=== PATIENT | female | born 1960 | race Caucasian/White ===

== ENCOUNTER 2019-05-11 12:10 | Day surgery (SDC) | payer MEDICARE ==
[2019-05-11] MEDS ORDERED: Depo-Medrol 40 MG/ML IM ONE (12:11)
[2019-05-11] MEDS ORDERED: Sodium Chloride 0.9(Preservative Free) 10 ML IJ ONE (12:11)
[2019-05-11] MEDS ORDERED: DIPRIVAN 200 MG/20 ML IV ONE (13:12)
[2019-05-11] MEDS ORDERED: Ketamine HCl 50 MG/ML ONE (13:12)
--- NOTE | 2019-05-11 14:52 | XRAY ---
20 seconds fluoroscopy time in surgery for L4-S1 transforaminal JENNA.
--- NOTE | 2019-05-11 14:52 | XRAY ---
Indication: Right L4-S1 JENNA. Intraoperative fluoroscopy was provided for 20 seconds. 2 digital spot images submitted for interpretation demonstrates posterior needle tips projecting over the expected course of the right L4 and L5 nerve roots. Small amount of contrast injected for needle tip placement. Correlate with intraoperative findings/report.
[2019-05-11] MEDS ORDERED: Lactated Ringers 1,000 ML IV ONE (15:18)
== END 2019-05-11 13:52 | disposition home or self-care (01) ==
LOC: SDC-PAIN 12:10
PROVIDERS: ATTEND Psychiatry & Neurology Pain Medicine
DX: M54.16 Radiculopathy, lumbar region (principal); M19.90 Unspecified osteoarthritis, unspecified site; L40.9 Psoriasis, unspecified; Z79.899 Other long term (current) drug therapy
CPT/HCPCS: 64483; 64484; 72020; 77003; J1030; J2704; Q9966

== ENCOUNTER 2021-04-03 12:07 | Day surgery (SDC) | payer MEDICARE ==
[2021-04-03] MEDS ORDERED: Sodium Chloride 0.9(Preservative Free) 10 ML IJ ONE (12:08)
[2021-04-03] MEDS ORDERED: Depo-Medrol 40 MG/ML IM ONE (12:08)
[2021-04-03] MEDS ORDERED: DIPRIVAN 200 MG/20 ML IV ONE (14:08)
--- NOTE | 2021-04-03 15:24 | XRAY ---
Indication: Right L4-S1 transforaminal JENNA. Intraoperative fluoroscopy was provided for 38 seconds. 3 digital spot image submitted for interpretation demonstrates posterior needle tips projecting over the expected right L4 and L5 nerve roots. Small amount of contrast injected for needle tip placement. Correlate with intraoperative findings/report. Incidental partially visualized L3 spinal fusion hardware.
--- NOTE | 2021-04-03 16:25 | XRAY ---
38 seconds of fluoroscopy was used in surgery for a right L4-S1 transforaminal JENNA.
[2021-04-03] MEDS ORDERED: Lactated Ringers 1,000 ML IV ONE (16:30)
== END 2021-04-03 14:40 | disposition home or self-care (01) ==
LOC: SDC-PAIN 12:07
PROVIDERS: ATTEND Psychiatry & Neurology Pain Medicine
DX: M54.16 Radiculopathy, lumbar region (principal); Z79.899 Other long term (current) drug therapy
CPT/HCPCS: 64483; 64484; 72100; 77003; J1030; J2704; Q9966

== ENCOUNTER 2022-07-01 18:04 | Emergency (ER) | payer MEDICARE ==
--- NOTE | 2022-07-01 18:19 | ERPHSYRPT ---
- History of Present Illness Time Seen by Provider: 07/01/22 18:19 Historian: patient Exam Limitations: no limitations Physician History: This is a 62-year-old white female patient of Dr. Saima Ramires who has had coughing for approximately 10 days. Today she noted pain in between her shoulder blades and also some pressure in her anterior central substernal chest. The pain between her shoulder blades were sharp. Patient does have a history of hypertension hyperlipidemia. She sees a pain specialist, Dr. Mohan. She also has a client support consultant Dr. Dio Cerda. Patient states she is not short of breath. Patient has not been exposed any individuals with similar symptoms or with the diagnosis of viral illness. Timing/Duration: week(s) (1.5) Quality: pressure (Anterior substernal chest), sharpness (In between her shoulder blades) Location: substernal, central, back Chest Pain Radiation: no radiation (I do not feel the this pain combination is radiation of chest pain. I do not think the pains are related) Severity of Pain-Max: mild Severity of Pain-Current: mild Modifying Factors: Improves With: nothing Associated Symptoms: cough, No nausea, No vomiting, No palpitations, No shortness of breath, No fever, No headache, No back pain Prior Chest Pain/Cardiac Workup: no prior chest pain Nitro Today/Relief: no nitro taken today Aspirin Treatment Today: no aspirin today Allergies/Adverse Reactions: No Known Drug Allergies Allergy (Unverified 07/01/22 18:06) Home Medications: Metoprolol Succinate 25 mg PO DAILY 07/01/22 [History] Rosuvastatin Calcium 5 mg PO DAILY 07/01/22 [History] Ustekinumab [Stelara] 1 syringe 07/01/22 [History] Travel Risk - International Travel Have you traveled outside of the country in past 3 weeks: No - Coronavirus Screening Are you exhibiting any of the following symptoms?: Yes Symptoms: Cough: New Onset, Headaches/Body Aches/Fatigue Close contact with a COVID-19 positive Pt in past 14-21 Days: No - Vaccine Status Have you recieved a Covid-19 vaccination: Yes - Review of Systems Constitutional: No Symptoms Eyes: No Symptoms Ears, Nose, & Throat: No Symptoms Respiratory: Cough Cardiac: Chest Pain (Chest pressure) Abdominal/Gastrointestinal: No Symptoms Genitourinary Symptoms: No Symptoms Musculoskeletal: Other (Sharp pain between her shoulder blades) Skin: No Symptoms Neurological: No Symptoms Psychological: No Symptoms Endocrine: No Symptoms Hematologic/Lymphatic: No Symptoms Immunological/Allergic: No Symptoms All Other Systems: Reviewed and Negative - Past Medical History Pertinent Past Medical History: Yes - Past Surgical History Past Surgical History: Yes - Nursing Vital Signs Nursing Vital Signs: Initial Vital Signs Temperature 97.8 F 07/01/22 18:05 Pulse Rate 71 07/01/22 18:05 Respiratory Rate 16 07/01/22 18:05 Blood Pressure 143/78 07/01/22 18:05 O2 Sat by Pulse Oximetry 98 07/01/22 18:05 Pain Scale Pain Intensity 5 - Physical Exam General Appearance: no apparent distress, alert, anxiety Eye Exam: PERRL/EOMI, eyes nml inspection Ears, Nose, Throat Exam: normal ENT inspection, moist mucous membranes Neck Exam: normal inspection, non-tender, supple, full range of motion Respiratory Exam: normal breath sounds, chest tenderness, lungs clear, airway intact, No respiratory distress Cardiovascular Exam: regular rate/rhythm, normal heart sounds, normal peripheral pulses Gastrointestinal/Abdomen Exam: soft, normal bowel sounds, No tenderness Pelvic Exam: not done Rectal Exam: not done Back Exam: normal inspection, normal range of motion, No CVA tenderness, No vertebral tenderness Extremity Exam: normal inspection, normal range of motion, pelvis stable Neurologic Exam: alert, oriented x 3, cooperative, table lever operator II-XII nml as tested, normal mood/affect, nml cerebellar function, nml station & gait, sensation nml Skin Exam: normal color, warm, dry Lymphatic Exam: No adenopathy SpO2 Interpretation: normal O2 Delivery: Room Air - Course Nursing assessment & vital signs reviewed: Yes Ordered Tests: Active Orders 24 hr Category Date Time Status EKG-ER Only STAT Care 07/01/22 18:30 Active IV Insertion STAT Care 07/01/22 18:30 Active Pulse Oximetry (ED) STAT Care 07/01/22 18:30 Active CHEST 1 VIEW (PORTABLE) Stat Exams 07/01/22 18:31 Taken CHEST WITH CONTRAST [CT] Stat Exams 07/01/22 20:50 Taken CBC W DIFF Stat Lab 07/01/22 18:55 Completed CMP Stat Lab 07/01/22 18:55 Completed D-DIMER QUANTITATIVE Stat Lab 07/01/22 18:55 Completed NT PRO BNP Stat Lab 07/01/22 18:55 Completed TROPONIN Q4H Lab 07/01/22 18:55 Completed TROPONIN Q4H Lab 07/01/22 22:45 Ordered TROPONIN Q4H Lab 07/02/22 02:45 Ordered Medication Summary Generic Name Dose Route Start Last Admin Trade Name Freluis PRN Reason Stop Dose Admin Hydrocodone Bitart/Acetaminophen 10 ml 07/01/22 22:13 Hydrocodone/Acetaminophen 5 Ml Udcup PO 07/01/22 22:14 STAT STA Discontinued Medications Generic Name Dose Route Start Last Admin Trade Name Freq PRN Reason Stop Dose Admin Hydrocodone Bitart/Acetaminophen 10 ml 07/01/22 22:13 Hydrocodone/Acetaminophen 5 Ml Udcup PO 07/01/22 22:14 STAT STA Aspirin 324 mg 07/01/22 18:30 07/01/22 18:37 Aspirin 81 Mg Tab.Chew PO 07/01/22 18:31 324 mg STAT ONE Administration Aspirin Confirm 07/01/22 18:39 Aspirin 81 Mg Tab.Chew Administered 07/01/22 18:40 Dose 324 mg .ROUTE .STK-MED ONE Methylprednisolone Sodium 0 mg 07/01/22 22:13 Succinate 125 mg/ Sterile IV 07/01/22 22:14 Water 2 ml STAT ONE Sodium Chloride 500 mls @ 500 mls/hr 07/01/22 20:51 07/01/22 22:04 Sodium Chloride 0.9% 500 Ml IV 07/01/22 21:50 Infused .Q1H ONE Infusion Sodium Chloride Confirm 07/01/22 21:01 Sodium Chloride 0.9% 500 Ml Administered 07/01/22 21:02 Dose 500 mls @ ud IV .STK-MED ONE Lab/Rad Data: Laboratory Result Diagrams 07/01/22 18:55 07/01/22 18:55 Laboratory Results 07/01/22 07/01/22 07/01/22 Range/Units 19:05 18:55 18:55 WBC (4.0-10.5) x10^3/uL RBC (4.1-5.4) x10^6/uL Hgb (12.0-16.0) g/dL Hct (35-47) % MCV (78-100) fL MCH (26-32) pg MCHC (32-36) g/dL RDW (11.5-14.0) % Plt Count (150-450) x10^3/uL MPV (7.5-11.0) fL Gran % (36.0-66.0) % Immature Gran % (Auto) (0.00-0.4) % Nucleat RBC Rel Count (0.00-0.1) % Eos # (Auto) (0-0.5) x10^3/uL Immature Gran # (Auto) (0.00-0.03) x10^3u/L Absolute Lymphs (auto) (1.0-4.6) x10^3/uL Absolute Monos (auto) (0.0-1.3) x10^3/uL Absolute Nucleated RBC (0.00-0.01) x10^3u/L Lymphocytes % (24.0-44.0) % Monocytes % (0.0-12.0) % Eosinophils % (0.00-5.0) % Basophils % (0.0-0.4) % Absolute Granulocytes (1.4-6.9) x10^3/uL Basophils # (0-0.4) x10^3/uL D-Dimer 0.55 H (0.0-0.50) mg/L Sodium (137-145) mmol/L Potassium (3.5-5.1) mmol/L Chloride (98-107) mmol/L Carbon Dioxide (22-30) mmol/L Anion Gap (5-15) MEQ/L BUN (7-17) mg/dL Creatinine (0.52-1.04) mg/dL Estimated GFR ML/MIN Glucose (74-106) mg/dL Calcium (8.4-10.2) mg/dL Total Bilirubin (0.2-1.3) mg/dL AST (14-36) U/L ALT (0-35) U/L Alkaline Phosphatase (38-126) U/L Troponin I < 0.012 (0.000-0.034) ng/mL NT-Pro-B Natriuret Pep (0-900) pg/mL Serum Total Protein (6.3-8.2) g/dL Albumin (3.5-5.0) g/dL Influenza Type A Ag NEGATIVE (NEGATIVE) Influenza Type B Ag NEGATIVE (NEGATIVE) RSV (PCR) NEGATIVE (Negative) SARS-CoV-2 (PCR) NEGATIVE (NEGATIVE) 07/01/22 07/01/22 Range/Units 18:55 18:55 WBC 7.7 (4.0-10.5) x10^3/uL RBC 5.28 (4.1-5.4) x10^6/uL Hgb 15.9 (12.0-16.0) g/dL Hct 47.4 H (35-47) % MCV 89.8 (78-100) fL MCH 30.1 (26-32) pg MCHC 33.5 (32-36) g/dL RDW 12.5 (11.5-14.0) % Plt Count 216 (150-450) x10^3/uL MPV 10.5 (7.5-11.0) fL Gran % 59.1 (36.0-66.0) % Immature Gran % (Auto) 0.3 (0.00-0.4) % Nucleat RBC Rel Count 0.0 (0.00-0.1) % Eos # (Auto) 0.11 (0-0.5) x10^3/uL Immature Gran # (Auto) 0.02 (0.00-0.03) x10^3u/L Absolute Lymphs (auto) 2.35 (1.0-4.6) x10^3/uL Absolute Monos (auto) 0.60 (0.0-1.3) x10^3/uL Absolute Nucleated RBC 0.00 (0.00-0.01) x10^3u/L Lymphocytes % 30.7 (24.0-44.0) % Monocytes % 7.8 (0.0-12.0) % Eosinophils % 1.4 (0.00-5.0) % Basophils % 0.7 (0.0-0.4) % Absolute Granulocytes 4.52 (1.4-6.9) x10^3/uL Basophils # 0.05 (0-0.4) x10^3/uL D-Dimer (0.0-0.50) mg/L Sodium 138 (137-145) mmol/L Potassium 3.9 (3.5-5.1) mmol/L Chloride 105 (98-107) mmol/L Carbon Dioxide 25 (22-30) mmol/L Anion Gap 11.4 (5-15) MEQ/L BUN 12 (7-17) mg/dL Creatinine 0.75 (0.52-1.04) mg/dL Estimated GFR > 60.0 ML/MIN Glucose 104 (74-106) mg/dL Calcium 9.5 (8.4-10.2) mg/dL Total Bilirubin 0.60 (0.2-1.3) mg/dL AST 36 (14-36) U/L ALT 22 (0-35) U/L Alkaline Phosphatase 74 (38-126) U/L Troponin I (0.000-0.034) ng/mL NT-Pro-B Natriuret Pep 53.4 (0-900) pg/mL Serum Total Protein 8.0 (6.3-8.2) g/dL Albumin 4.6 (3.5-5.0) g/dL Influenza Type A Ag (NEGATIVE) Influenza Type B Ag (NEGATIVE) RSV (PCR) (Negative) SARS-CoV-2 (PCR) (NEGATIVE) - Progress Progress: improved, re-examined Air Movement: good Progress Note: 07/01/22 20:49 Chest x-ray shows no acute cardiopulmonary process. 07/01/22 22:[address] no pulmonary embolus. No infiltrate/pneumonia Blood Culture(s) Obtained: No Antibiotics given: No Counseled pt/family regarding: lab results, diagnosis, need for follow-up, rad results - Departure Departure Disposition: Home Clinical Impression: Non-cardiac chest pain, Bronchitis Condition: Stable Critical Care Time: No Referrals: GEE RAMIRES [Primary Care Provider] - Follow up/PCP as directed Additional Instructions: Take your medication as prescribed. Follow-up with your primary care provider for further evaluation management. Prescriptions: Prednisone 10 mg [Deltasone 10 mg] 10 mg PO TID #12 tablet
[2022-07-01] MEDS ORDERED: BABY ASPIRIN 81 MG CHEW PO ONE (18:30)
[2022-07-01] MEDS ORDERED: BABY ASPIRIN 81 MG CHEW ONE (18:39)
[2022-07-01 19:19] LABS: Absolute Neutrophil Ct (ANC) 4.52 x10^3/uL (1.4-6.9); Basophil (Absolute #) 0.05 x10^3/uL (0-0.4); Eosinophil % 1.4 % (0.00-5.0); Eosinophil (Absolute #) 0.11 x10^3/uL (0-0.5); Hematocrit 47.4 % (35-47); Hemoglobin 15.9 g/dL (12.0-16.0); Lymphocyte (Absolute #) 2.35 x10^3/uL (1.0-4.6); Lymphocytes % 30.7 % (24.0-44.0); Mean Cell Volume 89.8 fL (78-100); Mean Corpuscular Hemoglobin 30.1 pg (26-32); Mean Corpuscular Hgb Concent. 33.5 g/dL (32-36); Mean Platelet Volume 10.5 fL (7.5-11.0); Monocytes % 7.8 % (0.0-12.0); Neutrophil % 59.1 % (36.0-66.0); Platelet Count 216 x10^3/uL (150-450); Red Blood Count 5.28 x10^6/uL (4.1-5.4); Red Cell Distribution Width 12.5 % (11.5-14.0); White Blood Count 7.7 x10^3/uL (4.0-10.5)
[2022-07-01 19:46] LABS: ALBUMIN 4.6 g/dL (3.5-5.0); ALKALINE PHOSPHATASE 74 U/L (38-126); ANION GAP 11.4 MEQ/L (5-15); BLOOD UREA NITROGEN 12 mg/dL (7-17); CHLORIDE 105 mmol/L (98-107); Calcium 9.5 mg/dL (8.4-10.2); Carbon Dioxide 25 mmol/L (22-30); Creatinine 1 0.75 mg/dL (0.52-1.04); EST GLOMERULAR FILTRATION RATE > 60.0 ML/MIN; Glucose 104 mg/dL (74-106); NT PRO BNP 53.4 pg/mL (0-900); Potassium 3.9 mmol/L (3.5-5.1); SGOT/AST 36 U/L (14-36); SGPT/ALT 22 U/L (0-35); SODIUM 138 mmol/L (137-145)
[2022-07-01 19:56] LABS: INFLUENZA A NEGATIVE (NEGATIVE); INFLUENZA B NEGATIVE (NEGATIVE); RESPIRATORY SYNCTIAL VIRUS NEGATIVE (Negative); SARS-CoV-2 Xpert Express NEGATIVE (NEGATIVE)
[2022-07-01] MEDS ORDERED: Sodium Chloride 0.9% 500 ML 500 ML IV ONE ×2 (20:51→21:01)
[2022-07-01 21:09] VITALS: O2SAT 97
[2022-07-01 22:09] VITALS: BP 128/61; PULSE 63
[2022-07-01] MEDS ORDERED: HYDROCODONE-ACETAMIN 2.5-108/5 ML SOLUTION PO STA ×2 (22:13)
[2022-07-01] MEDS ORDERED: solu-MEDROL 125 MG, Sterile H2O 10 ml 2 ML IV ONE ×2 (22:13)
[2022-07-01] MEDS ORDERED: HYDROCODONE-ACETAMIN 2.5-108/5 ML SOLUTION ONE ×2 (22:22→22:23)
[2022-07-01] MEDS ORDERED: solu-MEDROL ONE (22:22)
[2022-07-01] MEDS ORDERED: Sterile H2O 10 ml IJ ONE (22:22)
--- NOTE | 2022-07-02 08:44 | XRAY ---
Indication: Chest and back pain. Elevated d-dimer. Multiple contiguous axial images obtained through the chest using 100 cc Isovue 370 contrast and PE protocol. Comparison: None Good opacification of the pulmonary arteries to include the lobar and segmental branches. No pulmonary embolus. Heart not enlarged. Aorta is normal in course and caliber. No pathologic mediastinal/hilar lymphadenopathy. Lungs demonstrates minimal bilateral dependent atelectasis. No suspicious pulmonary mass/nodule, infiltrate, effusion, or pneumothorax. Bony thorax intact with mild degenerative changes throughout the spine and partially visualized inferior thoracolumbar spinal rods/pedicle hooks. Limited upper abdomen unremarkable. Impression: Negative pulmonary embolus. Remaining CT chest with contrast exam is negative.
--- NOTE | 2022-07-02 08:46 | XRAY ---
Indication: Chest pain. Comparison: None Portable chest demonstrates normal heart and lungs. Bony thorax intact with osteopenia, mild degenerative changes, and partially visualized thoracolumbar spinal hardware.
== END 2022-07-01 22:49 | disposition home or self-care (01) ==
LOC: ED 18:04
DX: J40 Bronchitis, not specified as acute or chronic (principal); R07.89 Other chest pain; R05.9 Cough, unspecified; M54.6 Pain in thoracic spine; I10 Essential (primary) hypertension; E78.5 Hyperlipidemia, unspecified; Z79.52 Long term (current) use of systemic steroids; Z79.899 Other long term (current) drug therapy; Z20.828 Contact with and (suspected) exposure to other viral communicable diseases
CPT/HCPCS: 0241U; 36000; 36415; 71045; 71260; 80053; 83880; 84484; 85025; 85379; 93005; 94760; 96374; 99284; J2930; A9270-GY